=== PATIENT | female | born 1980 | race Caucasian/White ===

== ENCOUNTER → 2017-01-21 | Day surgery (SDC) | payer BC ==
--- NOTE | 2017-01-21 16:05 | RADIOLOGY REPORT (SQ) ---
EXAM DESCRIPTION: U/S BIOPSY THYROID; U/S BIOPSY NEEDLE PLACEMENT COMPLETED DATE/TIME: 01/21/2017 2:39 pm REASON FOR STUDY: L THYROID NODULES; LT THYROID NODULES E04.9 NONTOXIC GOITER, UNSPECIFIED COMPARISON: Thyroid ultrasound 06/27/2012 Thyroid ultrasound [facility] 01/17/2017 TECHNIQUE: Prior imaging was reviewed. Patient has a a solid nodule in the upper half of the left l obe thyroid, and a cyst with mural nodule in the lower pole left lobe thyroid. Each of these lesions was targeted for thyroid aspirate. Limited imaging of the right lobe thyroid demonstrates a small solid nodule in the posterior inferior right lobe thyroid measuring 8 x 6 mm in size, similar compared to study from 2011. There is also a tiny 2 to 3 mm colloid cyst, similar compared to ultrasound 01/17/2017. Left lobe thyroid nodule biopsy was discussed with the patient and written informed consent obtained. A timeout was performed to confirm the procedure and patient's identity. The skin of the neck was prepped and draped in sterile fashion. Left upper pole nodule: 0.75 mL of 1% lidocaine administered for local anesthesia. Under sonographic guidance, fine needle a spiration biopsy was performed of the mass in the upper pole left lobe of the thyroid. 3 aspirates w ere obtained, specimens were received by the case checker who confirmed adequate tissue sampling. Left lower pole nodule: 0.5 mL of 1% lidocaine was administered for local anesthesia. Under sonographic guidance, fine-needl e aspiration was performed of the mass in the lower pole left lobe thyroid. Initial needle pass yiel ded 0.5 mL of fluid. Subsequent passes yielded cellular material, specimens were received by the [facility] [place] otechnologist who confirmed adequate tissue sampling. There were no immediate postprocedure complications. LIMITATIONS: None. FINDINGS: PATHOLOGY: Pending. IMPRESSION: ULTRASOUND-GUIDED BIOPSY PERFORMED OF MASSES IN THE LEFT UPPER AND LEFT LOWERTHYROID. P ATHOLOGY PENDING AT THE TIME OF DICTATION. COMMENT: Patient medication list reviewed: Yes- Quality ID# [id number]:Eligible professional attests to doc umenting in the medical record they obtained, updated, or reviewed the patient's current medications. TECHNICAL DOCUMENTATION: JOB ID: [id number] [employer]- All Rights Reserved
--- NOTE | 2017-01-21 16:05 | RADIOLOGY REPORT (SQ) ---
EXAM DESCRIPTION: U/S BIOPSY THYROID; U/S BIOPSY NEEDLE PLACEMENT COMPLETED DATE/TIME: 01/21/2017 2:39 pm REASON FOR STUDY: L THYROID NODULES; LT THYROID NODULES E04.9 NONTOXIC GOITER, UNSPECIFIED COMPARISON: Thyroid ultrasound 06/27/2012 Thyroid ultrasound [facility] 01/17/2017 TECHNIQUE: Prior imaging was reviewed. Patient has a a solid nodule in the upper half of the left l obe thyroid, and a cyst with mural nodule in the lower pole left lobe thyroid. Each of these lesions was targeted for thyroid aspirate. Limited imaging of the right lobe thyroid demonstrates a small solid nodule in the posterior inferior right lobe thyroid measuring 8 x 6 mm in size, similar compared to study from 2011. There is also a tiny 2 to 3 mm colloid cyst, similar compared to ultrasound 01/17/2017. Left lobe thyroid nodule biopsy was discussed with the patient and written informed consent obtained. A timeout was performed to confirm the procedure and patient's identity. The skin of the neck was prepped and draped in sterile fashion. Left upper pole nodule: 0.75 mL of 1% lidocaine administered for local anesthesia. Under sonographic guidance, fine needle a spiration biopsy was performed of the mass in the upper pole left lobe of the thyroid. 3 aspirates w ere obtained, specimens were received by the web machine tender who confirmed adequate tissue sampling. Left lower pole nodule: 0.5 mL of 1% lidocaine was administered for local anesthesia. Under sonographic guidance, fine-needl e aspiration was performed of the mass in the lower pole left lobe thyroid. Initial needle pass yiel ded 0.5 mL of fluid. Subsequent passes yielded cellular material, specimens were received by the [facility] otechnologist who confirmed adequate tissue sampling. There were no immediate postprocedure complications. LIMITATIONS: None. FINDINGS: PATHOLOGY: Pending. IMPRESSION: ULTRASOUND-GUIDED BIOPSY PERFORMED OF MASSES IN THE LEFT UPPER AND LEFT LOWERTHYROID. P ATHOLOGY PENDING AT THE TIME OF DICTATION. COMMENT: Patient medication list reviewed: Yes- Quality ID# [id number]:Eligible professional attests to doc umenting in the medical record they obtained, updated, or reviewed the patient's current medications. TECHNICAL DOCUMENTATION: JOB ID: [id number] [employer]- All Rights Reserved
== END ==
LOC: RAD 12:48
PROVIDERS: ATTEND Physician Assistant
PROC: 0GBG3ZX Excision of Left Thyroid Gland Lobe, Percutaneous Approach, Diagnostic (ICD-10-PCS; principal; 2017-01-21)
DX: E04.9 Nontoxic goiter, unspecified (principal)
CPT/HCPCS: 60100; 76942; 88173

== ENCOUNTER 2017-09-30 07:11 | Observation (INO) | payer BC ==
[2017-09-29 10:26] LABS: ABSOLUTE EOSINOPHILS # (AUTO) 0.1 10^3/uL (0.0-0.6); ABSOLUTE LYMPHOCYTES (AUTO) 2.5 10^3/uL (0.5-4.7); ABSOLUTE MONOCYTES (AUTO) 0.4 10^3/uL (0.1-1.4); BASOPHILS % (AUTO) 0.7 % (0-2); EOSINOPHILS % (AUTO) 1.1 % (0-6); HEMATOCRIT 35.7 % (36.0-47.0); HEMOGLOBIN 12.6 g/dL (12.0-15.5); LYMPHOCYTES % (AUTO) 35.5 % (13-45); MEAN CORPUSCULAR HEMOGLOBIN 30.2 pg (27.0-33.4); MEAN CORPUSCULAR HGB CONC 35.2 g/dL (32.0-36.0); MEAN CORPUSCULAR VOLUME 86 fl (80-97); MONOCYTES % (AUTO) 5.8 % (3-13); PLATELET COUNT 219 10^3/uL (150-450); RED BLOOD COUNT 4.15 10^6/uL (3.72-5.28); SEGMENTED NEUTROPHILS % (AUTO) 56.9 % (42-78); TOTAL CELLS COUNTED % (AUTO) 100 %; WHITE BLOOD COUNT 7.1 10^3/uL (4.0-10.5)
[2017-09-29 10:59] LABS: ANION GAP 11 (5-19); BLOOD UREA NITROGEN 12 mg/dL (7-20); CALCIUM 9.8 mg/dL (8.4-10.2); CARBON DIOXIDE 28 mmol/L (22-30); CHLORIDE 103 mmol/L (98-107); GLUCOSE 74 mg/dL (75-110); POTASSIUM 3.9 mmol/L (3.6-5.0); SODIUM 141.9 mmol/L (137-145)
--- NOTE | 2017-09-29 12:47 | EKG REPORT ---
SEVERITY:- NORMAL ECG - SINUS RHYTHM : Confirmed by: Jarad Dean MD 29-Sep-2017 12:46:19
[2017-09-30 08:23] LABS: ALBUMIN 4.7 g/dL (3.5-5.0); CALCIUM 9.8 mg/dL (8.4-10.2); MAGNESIUM 2.1 mg/dL (1.6-2.3); PHOSPHORUS 3.1 mg/dL (2.5-4.5)
[2017-09-30] MEDS ORDERED: LIDOCAINE 2%/EPINEPHRINE INJ 1.7 ML CARTRIDGE ONE (09:23)
[2017-09-30] MEDS ORDERED: DEXAMETHASONE SOD PHOSPHATE INJ 4 MG/1 ML VIAL ONE (09:47)
[2017-09-30] MEDS ORDERED: GLYCOPYRROLATE INJ 0.4 MG/2 ML VIAL ONE (09:47)
[2017-09-30] MEDS ORDERED: ONDANSETRON HCL INJ/PF 4 MG/2 ML SDV ONE (09:47)
[2017-09-30] MEDS ORDERED: SUCCINYLCHOLINE CHLORIDE INJ 200 MG/10 ML VIAL ONE (09:47)
[2017-09-30] MEDS ORDERED: MIDAZOLAM 2 MG/2 ML INJ ONE (10:31)
[2017-09-30] MEDS ORDERED: HYDROMORPHONE HCL INJ/PF 2 MG/ML AMPULE ONE (10:31)
[2017-09-30] MEDS ORDERED: EPHEDRINE SULFATE INJ 50 MG/1 ML AMPULE ONE (10:31)
[2017-09-30] MEDS ORDERED: FENTANYL CITRATE INJ/PF 100 MCG/2 ML AMPUL ONE ×2 (10:31→15:44)
[2017-09-30] MEDS ORDERED: ACETAMINOPHEN 100 ML IV ONE (10:32)
[2017-09-30] MEDS ORDERED: PROPOFOL INJ 200 MG/20 ML VIAL IV ONE (10:32)
[2017-09-30] MEDS ORDERED: CEFAZOLIN INJ 1 GM VIAL ONE (10:57)
[2017-09-30] MEDS ORDERED: MICROFIBRILLAR COLLAGEN 1 GM PACK ONE (14:11)
[2017-09-30] MEDS ORDERED: OXYCODONE-ACETAMINOPHEN 5-325 MG TABLET PO PRN ×2 (14:21)
[2017-09-30] MEDS ORDERED: MORPHINE SULFATE 10 MG/ML INJ IV PRN ×2 (14:21→16:18)
[2017-09-30] MEDS ORDERED: MEPERIDINE HCL/PF INJ 25 MG/1 ML DISP.SYRIN IV PRN (14:21)
[2017-09-30] MEDS ORDERED: FENTANYL CITRATE INJ/PF 100 MCG/2 ML AMPUL IV PRN ×3 (14:21)
[2017-09-30] MEDS ORDERED: PROMETHAZINE HCL INJ 25 MG/1 ML VIAL IV PRN ×4 (14:21→17:08)
[2017-09-30] MEDS ORDERED: DIPHENHYDRAMINE HCL 50 MG/ML VIAL IV PRN (14:21)
[2017-09-30] MEDS ORDERED: PROMETHAZINE HCL INJ 25 MG/1 ML VIAL ONE (15:43)
[2017-09-30] MEDS ORDERED: ONDANSETRON HCL INJ/PF 4 MG/2 ML SDV IV PRN (17:07)
[2017-09-30] MEDS: RINGERS SOLUTION,LACTATED 1,000 ML IV PRN (17:45)
[2017-09-30] MEDS: HYDROCODONE/ACETAMINOPHEN 5-325 MG TABLET PO PRN ×2 (17:46→22:09)
[2017-09-30 20:50] LABS: ALBUMIN 4.1 g/dL (3.5-5.0); MAGNESIUM 1.8 mg/dL (1.6-2.3); PHOSPHORUS 2.7 mg/dL (2.5-4.5)
[2017-10-01] MEDS: RINGERS SOLUTION,LACTATED 1,000 ML IV PRN (02:34)
[2017-10-01] MEDS: HYDROCODONE/ACETAMINOPHEN 5-325 MG TABLET PO PRN (07:24)
[2017-10-01 12:09] VITALS: BP 123/81
--- NOTE | 2017-10-02 15:38 | OPERATIVE REPORT E ---
Operative Report NAME: CHRISTOPHER DUARTE : 1980 AGE: 37Y DATE OF SURGERY: 09/30/2017 ROOM: 319 PREOPERATIVE DIAGNOSIS: MULTINODULAR GOITER. POSTOPERATIVE DIAGNOSIS: MULTINODULAR GOITER. OPERATIONS: 1. Total thyroidectomy. 2. Intraoperative NIM nerve monitoring. SURGEON: PEDRO PABLO ROLLINS D.O. ANESTHESIA: General endotracheal tube. ANESTHESIA STAFF: Pedro Pablo Jones CRNA COMPLICATIONS: None. DRAINS: None. SPONGE COUNT: Verified. NEEDLE COUNT: Verified. INTRAVENOUS FLUIDS: 2200 mL. URINE OUTPUT: 1000 mL. ESTIMATED BLOOD LOSS: 50 mL. MATERIALS FORWARDED SPECIMEN: Total thyroid gland with double long marking suture at the left superior pole and single short suture at the right superior pole. FINDINGS: 1. Multinodular total thyroid gland, left greater than right, and gland with multilobular borders and a pyramidal lobe. 2. Bilateral recurrent laryngeal nerves were identified and preserved and were with adequate stimulation at 0.5 milliamps at the end of the case. 3. Bilateral parathyroid gland prospects were identified and preserved. 4. There was no lymphadenopathy noted. INDICATIONS: This is a 37-year-old white female who was seen and evaluated in the [facility] office. The patient had been referred by Dr. Abdi, quality assurance monitor body, [place], [place], for a history of a multinodular goiter with enlarged left thyroid nodules compared to the right, and the patient has been with progressively worsening compressive symptoms over the months. Fine needle aspiration biopsies had been performed with pathology being benign, [place] category 2. However, the patient is aware that there is sampling error involved as well due to the left thyroid nodule that is greater than 3 cm in size. After extensive discussion with the patient, recommendation and plan was made to proceed with a total thyroidectomy, which the patient voiced an understanding of and agreed with. The procedures and all of their risks and complications were all discussed in detail with the patient. She voiced an understanding of all that was discussed, was in agreement, and consent was obtained. PROCEDURE: The patient was taken to the main operating room and placed on the operating room table in the supine position. Appropriate monitoring placed. Using mask and IV access, general anesthesia was induced. The patient was transorally intubated with the NIM monitoring endotracheal tube without difficulty. The previously planned incision site was marked and then infiltrated with local anesthetic with epinephrine. The NIM monitoring system was also set up, and it tested appropriately prior to beginning the case. The patient was next prepped and draped in the usual fashion for neck/thyroid surgery. At this point, the skin was sharply incised down to the level of the platysma. Flaps were elevated in a subplatysmal plane without difficulty. The strap muscles were identified and divided in the midline. The left thyroid lobe with enlarged nodules was mobilized without difficulty. The superior and inferior thyroid pole vasculature was identified and addressed with the Harmonic handpiece device. Bipolar electrocautery was also used throughout the case to provide adequate hemostasis. During the process of mobilizing the left thyroid lobe and nodules, parathyroid gland prospects were identified and preserved. The left recurrent laryngeal nerve was also identified and preserved. It stimulated adequately at 0.5 milliamps. Attention was turned to the right thyroid lobe which was mobilized as the left had been. Superior and inferior thyroid pole vasculature was addressed as before. The parathyroid gland prospects and right recurrent laryngeal nerve were all identified and preserved. The right recurrent laryngeal nerve stimulated adequately at 0.5 milliamps. The thyroid gland was next released from the area of Hernandez's ligament and brought onto the anterior tracheal wall, where it was also released. The pyramidal lobe was also mobilized and removed as a part of the thyroid gland specimen. The gland was marked as noted above. The wound beds were thoroughly irrigated with normal saline. Bipolar electrocautery was used to provide adequate hemostasis. One 2 x 2 cm piece of Surgicel was placed per side. The strap muscles were reapproximated in the midline with 5-0 Vicryl suture; 5-0 Vicryl suture was also used to reapproximate the platysmal layer. Next, 5-0 Monocryl suture was used to reapproximate the deeper subcutaneous and dermal layers. A final skin layer of reapproximation was performed with a continuous deep dermal 5-0 Monocryl suture. At this point, the skin was cleaned and dried followed by placement of Mastisol and Steri-Strips. The patient was then returned to the anesthesia staff and was allowed to emerge from general anesthesia. The patient was extubated in the main operating room and was then transported to the postanesthesia recovery unit in stable condition. There were no complications. DICTATING PHYSICIAN: PEDRO PABLO ROLLINS D.O. [id number] PHY#: [id number] ID: [id number] JOB#: [id number] ACCT: [id number] cc:PEDRO PABLO ROLLINS D.O. > KRISTIN
== END 2017-10-01 12:10 | disposition home or self-care (01) ==
LOC: OROUT 07:11 → 3W 16:08
PROVIDERS: ADMIT Otolaryngology; ATTEND Otolaryngology
PROC: 0GBJ0ZZ Excision of Thyroid Gland Isthmus, Open Approach (ICD-10-PCS; 2017-09-30)
PROC: 0GTK0ZZ Resection of Thyroid Gland, Open Approach (ICD-10-PCS; principal; 2017-09-30 09:45)
DX: E04.2 Nontoxic multinodular goiter (principal); G43.909 Migraine, unspecified, not intractable, without status migrainosus; Z80.9 Family history of malignant neoplasm, unspecified; Z83.49 Family history of other endocrine, nutritional and metabolic diseases; Z90.49 Acquired absence of other specified parts of digestive tract; Z87.891 Personal history of nicotine dependence; Z79.899 Other long term (current) drug therapy
CPT/HCPCS: 93005; 36415 ×2; 82040; 82310; 83735; 84100; 84703; 85025; 80048; 83970; 88307 ×2; 93010; 60240; G0378 ×2; G0379; J2250; J3490 ×2; J0690; J1100; J3010; J1170; J2550; J0330; J2405; J7120 ×2; J2704; J0131; 320

== ENCOUNTER 2019-06-26 14:05 | Emergency (ER) | payer BC, OTHER ==
[2019-06-26] MEDS ORDERED: NORMAL SALINE 1000 ML 1,000 ML IV ONE (14:08)
--- NOTE | 2019-06-26 14:13 | ER Document Report ---
ED Medical Screen (RME) - General Chief Complaint: Dizziness Stated Complaint: DIZZINESS Time Seen by Provider: 06/26/19 14:07 Primary Care Provider: SIDDHARTH FLOR CRNP [Primary Care Provider] - Follow up as needed Mode of Arrival: Ambulatory Information source: Patient Notes: 38-year-old female presents to the emergency department with feeling shortness of breath confusion lightheaded. Reports she is been taking doxy 100 mg p.o. twice daily. Has hoarse voice. I have greeted and performed a rapid initial assessment of this patient. A comprehensive ED assessment and evaluation of the patient, analysis of test results and completion of the medical decision making process will be conducted by additional ED providers. Dictation of this chart was performed using voice recognition software; therefore, there may be some unintended grammatical errors. TRAVEL OUTSIDE OF THE U.S. IN LAST 30 DAYS: No - Related Data Allergies/Adverse Reactions: No Known Allergies Allergy (Verified 11/03/11 15:51) Past Medical History - Past Medical History Cardiac Medical History: Denies: Hx Congestive Heart Failure, Hx Coronary Artery Disease, Hx Heart Attack, Hx Hypertension Pulmonary Medical History: Denies: Hx Asthma, Hx Bronchitis, Hx COPD, Hx Pneumonia, Hx Tuberculosis Neurological Medical History: Denies: Hx Cerebrovascular Accident, Hx Seizures, Hx Parkinson's Disease Renal/ Medical History: Denies: Hx End Stage Renal Disease, Hx Kidney Stones GI Medical History: Denies: Hx Cirrhosis, Hx Gastroesophageal Reflux Disease, Hx Ulcer Musculoskeltal Medical History: Denies Hx Arthritis, Denies Hx Multiple Sclerosis Psychiatric Medical History: Denies: Hx Bipolar Disorder, Hx Depression, Hx Schizophrenia Past Surgical History: Reports: Hx Appendectomy, Hx Breast Surgery - Immunizations Immunizations up to date: Yes Hx Diphtheria, Pertussis, Tetanus Vaccination: Yes Doctor's Discharge - Discharge Referrals: SIDDHARTH FLOR CRNP [Primary Care Provider] - Follow up as needed
[2019-06-26 14:48] LABS: ABSOLUTE LYMPHOCYTES (AUTO) 1.7 10^3/uL (0.5-4.7); ABSOLUTE MONOCYTES (AUTO) 0.4 10^3/uL (0.1-1.4); ABSOLUTE NEUT (AUTO) 8.6 10^3/uL (1.7-8.2); BASOPHILS % (AUTO) 0.5 % (0-2); EOSINOPHILS % (AUTO) 0.3 % (0-6); HEMATOCRIT 38.7 % (36.0-47.0); HEMOGLOBIN 13.2 g/dL (12.0-15.5); LYMPHOCYTES % (AUTO) 15.5 % (13-45); MEAN CORPUSCULAR HEMOGLOBIN 30.1 pg (27.0-33.4); MEAN CORPUSCULAR HGB CONC 34.1 g/dL (32.0-36.0); MEAN CORPUSCULAR VOLUME 88 fl (80-97); MONOCYTES % (AUTO) 3.7 % (3-13); PLATELET COUNT 260 10^3/uL (150-450); RED BLOOD COUNT 4.39 10^6/uL (3.72-5.28); RED CELL DISTRIBUTION WIDTH 13.2 % (11.5-14.0); TOTAL CELLS COUNTED % (AUTO) 100 %; WHITE BLOOD COUNT 10.7 10^3/uL (4.0-10.5)
[2019-06-26 15:06] LABS: ALBUMIN 4.6 g/dL (3.5-5.0); ALKALINE PHOSPHATASE 58 U/L (38-126); ANION GAP 14 (5-19); ASPARTATE AMINO TRANSFERASE 24 U/L (14-36); BILIRUBIN,DIRECT 0.2 mg/dL (0.0-0.4); BILIRUBIN,TOTAL 0.3 mg/dL (0.2-1.3); BLOOD UREA NITROGEN 15 mg/dL (7-20); CALCIUM 9.2 mg/dL (8.4-10.2); CARBON DIOXIDE 24 mmol/L (22-30); CHLORIDE 105 mmol/L (98-107); GLUCOSE 115 mg/dL (75-110); TOTAL PROTEIN 7.4 g/dL (6.3-8.2)
[2019-06-26 15:08] LABS: A TYPE INFLUENZA AG NEGATIVE (NEGATIVE); B INFLUENZA AG NEGATIVE (NEGATIVE)
--- NOTE | 2019-06-26 15:26 | RADIOLOGY REPORT (SQ) ---
EXAM DESCRIPTION: CHEST 2 VIEWS COMPLETED DATE/TIME: 06/26/2019 3:08 pm REASON FOR STUDY: sob COMPARISON: PA and lateral views of the chest from 07/26/2012. EXAM PARAMETERS: NUMBER OF VIEWS: two views TECHNIQUE: Digital Frontal and Lateral radiographic views of the chest acquired. RADIATION DOSE: NA LIMITATIONS: none FINDINGS: LUNGS AND PLEURA: Acute bilateral perihilar opacities in a peribronchial distribution and associated with peribronchial cuffing. There is no superimposed consolidation, pleural effusion or p neumothorax. MEDIASTINUM AND HILAR STRUCTURES: No mediastinal or hilar contour abnormality. HEART AND VASCULAR STRUCTURES: The cardiac silhouette and pulmonary vasculature are within normal roger its. BONES: No acute findings. HARDWARE: None. OTHER: No other finding. IMPRESSION: Acute bilateral perihilar opacities in a peribronchial distribution and associated with peribronchial cuffing. There is no superimposed consolidation. Clinical correlation to exclude an i nfectious or inflammatory bronchiolitis is recommended. TECHNICAL DOCUMENTATION: JOB ID: [id number] [employer]- All Rights Reserved Reading location - IP/workstation name: [email or web address]
--- NOTE | 2019-06-26 15:31 | EKG REPORT ---
SEVERITY:- BORDERLINE ECG - SINUS RHYTHM BORDERLINE T ABNORMALITIES, DIFFUSE LEADS : Confirmed by: Jarad Dean MD 26-Jun-2019 15:30:54
--- NOTE | 2019-06-26 15:54 | RADIOLOGY REPORT (SQ) ---
EXAM DESCRIPTION: CTA CHEST COMPLETED DATE/TIME: 06/26/2019 3:32 pm REASON FOR STUDY: sob/dizzy/vapes COMPARISON: PA and lateral views of the chest from 06/26/2019. TECHNIQUE: CT scan of the chest performed using helical scanning technique with dynamic intravenous contrast injection. Images reviewed with lung, soft tissue and bone windows. Reconstructed coronal and sagittal MPR images reviewed. Additional 3 dimensional post-processing performed to develop Maximal Intensity Projection images ([place] P). All images stored on PACS. All CT scanners at this facility use dose modulation, iterative reconstruction, and/or weight based d osing when appropriate to reduce radiation dose to as low as reasonably achievable (ALARA). [facility]: Dose Right [facility]: CareDose [facility]: Dose Right [facility]: Teradose 4D [facility]: CampuScene CONTRAST TYPE AND DOSE: contrast/concentration: Isovue 350.00 mg/ml; Total Contrast Delivered: 70.0 ml; Total Saline Delivered: 70.0 ml Contrast bolus optimized for the pulmonary arteries. Not diagnostic for the aorta. RENAL FUNCTION: GFR > 60. RADIATION DOSE: CT Rad equipment meets quality standard of care and radiation dose reduction techniq ues were employed. CTDIvol: 14.3 - 14.9 mGy. DLP: 552 mGy-cm. . LIMITATIONS: None. FINDINGS: LUNGS AND PLEURA: The trachea main bronchi are patent. There is no bronchiectasis or mucu s plugging. There are strands of atelectasis in the lingula, right middle lobe and bilateral lower l obes. There is no consolidation, ground-glass opacification, pleural effusion or pneumothorax AORTA AND GREAT VESSELS: Evaluation is limited as the contrast bolus was optimized for evaluation of the pulmonary arteries. There is no thoracic aortic dissection. HEART: No cardiomegaly or pericardial effusion. PULMONARY ARTERIES: No central or segmental pulmonary embolus. Evaluation of the subsegmental branch es is limited due to respiratory motion. HILAR AND MEDIASTINAL STRUCTURES: No mediastinal or hilar adenopathy. HARDWARE: None in the chest. UPPER ABDOMEN: No acute findings. THYROID AND OTHER SOFT TISSUES: Bilateral prepectoral breast implants. BONES: No acute findings. 3D MIPS: Confirm above findings. OTHER: No other finding. IMPRESSION: 1. No central or segmental pulmonary embolus. Evaluation of the subsegmental branches is limited due to respiratory motion. 2. No acute cardiopulmonary process. The bilateral perihilar opacities described on the correlative radiograph represent artifact from the breast implants. COMMENT: Quality ID # [id number]: Final reports with documentation of one or more dose reduction techniques (e.g., Automated exposure control, adjustment of the mA and/or kV according to patient size, use of iterative reconstruction technique) TECHNICAL DOCUMENTATION: JOB ID: [id number] [employer]- All Rights Reserved Reading location - IP/workstation name: [email or web address]
[2019-06-26 16:39] VITALS: BP 146/98
--- NOTE | 2019-06-26 16:42 | ER Document Report ---
ED Dizziness/Weakness - General Chief Complaint: Dizziness Stated Complaint: DIZZINESS Time Seen by Provider: 06/26/19 14:07 Primary Care Provider: SIDDHARTH FLOR CRNP [COMMUNITY BASED STAFF] - Follow up as needed Mode of Arrival: Ambulatory Information source: Patient TRAVEL OUTSIDE OF THE U.S. IN LAST 30 DAYS: No - HPI Notes: Patient presents with weakness, dizziness and shortness of breath. Patient states she has had upper respiratory-like symptoms for approximately 6 days. She states she has been taking steroids, doxycycline, DayQuil, and Benadryl at home. She states when she woke up this morning she felt that she was doing better than on the drive to work she became very dizzy lightheaded and felt short of breath. She states she has been coughing sometimes to the point where she has a hard time catching her breath. She states that her pertussis vaccination is up-to-date. She has had fevers and chills at home. She has had body aches and weakness. Her body aches are moderate in intensity. They are s ystemic. They radiate throughout her body. They are worse with movement and better with rest. She has had some hoarseness of her voice as well. She is also had trouble sleeping. - Related Data Allergies/Adverse Reactions: No Known Allergies Allergy (Verified 11/03/11 15:51) Past Medical History - General Information source: Patient - Social History Smoking Status: Current Some Day Smoker - Patient vapes Frequency of alcohol use: None Drug Abuse: None Family History: Reviewed & Not Pertinent Patient has suicidal ideation: No Patient has homicidal ideation: No - Past Medical History Cardiac Medical History: Denies: Hx Congestive Heart Failure, Hx Coronary Artery Disease, Hx Heart Attack, Hx Hypertension Pulmonary Medical History: Denies: Hx Asthma, Hx Bronchitis, Hx COPD, Hx Pneumonia, Hx Tuberculosis Neurological Medical History: Denies: Hx Cerebrovascular Accident, Hx Seizures, Hx Parkinson's Disease Renal/ Medical History: Denies: Hx End Stage Renal Disease, Hx Kidney Stones GI Medical History: Denies: Hx Cirrhosis, Hx Gastroesophageal Reflux Disease, Hx Ulcer Musculoskeletal Medical History: Denies Hx Arthritis, Denies Hx Multiple Sclerosis Psychiatric Medical History: Denies: Hx Bipolar Disorder, Hx Depression, Hx Schizophrenia Past Surgical History: Reports: Hx Appendectomy, Hx Breast Surgery - Immunizations Immunizations up to date: Yes Hx Diphtheria, Pertussis, Tetanus Vaccination: Yes Review of Systems - Review of Systems Constitutional: Chills, Fever, Malaise, Weakness Cardiovascular: Dizziness, Lightheaded Respiratory: Cough, Short of breath -: Yes All other systems reviewed and negative Physical Exam - Vital signs Vitals: Resp Pulse Ox 15 98 06/26/19 15:02 06/26/19 15:02 Interpretation: Normal - General General appearance: Appears well, Alert - HEENT Head: Normocephalic, Atraumatic Eyes: Normal Pupils: PERRL - Respiratory Respiratory status: No respiratory distress Chest status: Nontender Breath sounds: Normal Chest palpation: Normal - Cardiovascular Rhythm: Regular Heart sounds: Normal auscultation Murmur: No - Abdominal Inspection: Normal Distension: No distension Bowel sounds: Normal Tenderness: Nontender Organomegaly: No organomegaly - Back Back: Normal, Nontender - Extremities General upper extremity: Normal inspection, Nontender, Normal color, Normal ROM, Normal temperature General lower extremity: Normal inspection, Nontender, Normal color, Normal ROM, Normal temperature, Normal weight bearing. No: Amrit's sign - Neurological Neuro grossly intact: Yes Cognition: Normal Orientation: AAOx4 [place] Coma Scale Eye Opening: Spontaneous Sal Coma Scale Verbal: Oriented Sal Coma Scale Motor: Obeys Commands [place] Coma Scale Total: 15 Speech: Normal Motor strength normal: LUE, RUE, LLE, RLE Sensory: Normal - Psychological Associated symptoms: Normal affect, Normal mood - Skin Skin Temperature: Warm Skin Moisture: Dry Skin Color: Normal Course - Re-evaluation Re-evalutation: 06/26/19 16:40 Patient presents with upper respiratory symptoms for 6 days with dizziness and shortness of breath. I believe this patient's symptoms may be a combination of the URI plus the medicine she is taking. CT of the chest shows no evidence of pulmonary embolism or infectious process. Laboratories are unremarkable as well. Patient's vital signs are stable. She has an unremarkable exam. I will have the patient stop all the medication she is taking and start Tessalon Perles and Ceftin ear. - Vital Signs Vital signs: Temp Pulse Resp BP Pulse Ox 17 153/100 H 97 06/26/19 15:03 06/26/19 15:03 06/26/19 15:03 - Laboratory Result Diagrams: 06/26/19 14:18 06/26/19 14:18 Laboratory results interpreted by me: 06/26/19 06/26/19 06/26/19 14:18 14:18 14:18 WBC 10.7 H Absolute Neuts (auto) 8.6 H Seg Neutrophils % 80.0 H Glucose 115 H POC Glucose 116 H - Diagnostic Test Radiology reviewed: Image reviewed, Reports reviewed - EKG Interpretation by Me EKG shows normal: Sinus rhythm Rate: Normal - 64 Rhythm: NSR [place]/QRS: No: Right axis deviation, Left axis deviation Discharge - Discharge Clinical Impression: Dizziness URI (upper respiratory infection) Qualifiers: URI type: unspecified URI Qualified Code(s): J06.9 - Acute upper respiratory infection, unspecified Condition: Stable Disposition: HOME, SELF-CARE Instructions: Upper Respiratory Illness ([facility]), Dizziness ([facility]) Prescriptions: Benzonatate [Tessalon Perle 100 mg Capsule] 200 mg PO Q8HP PRN 4 Days #20 cap PRN Reason: Cefdinir 300 mg PO BID 7 Days #14 capsule Referrals: SIDDHARTH FLOR CRNP [COMMUNITY BASED STAFF] - Follow up as needed
== END 2019-06-26 17:00 | disposition home or self-care (01) ==
LOC: ER 14:05
DX: J06.9 Acute upper respiratory infection, unspecified (principal); R42 Dizziness and giddiness; R06.02 Shortness of breath; R41.0 Disorientation, unspecified; R53.1 Weakness; F17.290 Nicotine dependence, other tobacco product, uncomplicated
CPT/HCPCS: 93005; 99284; 96360; 36415; 82962; 84703; 85025; 80053; 84484; 87804; 71046; 71275; 93010; J7030

== ENCOUNTER 2019-07-02 17:18 | Emergency (ER) | payer OTHER ==
--- NOTE | 2019-07-02 18:34 | RADIOLOGY REPORT (SQ) ---
EXAM DESCRIPTION: CT HEAD WITHOUT COMPLETED DATE/TIME: 07/02/2019 6:12 pm REASON FOR STUDY: left sided pain COMPARISON: 10/11/2012 TECHNIQUE: Axial images acquired through the brain without intravenous contrast. Images reviewed wi th bone, brain and subdural windows. Additional sagittal and coronal reconstructions were generated. Images stored on PACS. All CT scanners at this facility use dose modulation, iterative reconstruction, and/or weight based d osing when appropriate to reduce radiation dose to as low as reasonably achievable (ALARA). [facility]: Dose Right [facility]: CareDose [facility]: Dose Right [facility]: Teradose 4D [facility]: [employer] SAVE RADIATION DOSE: mGy. LIMITATIONS: None. FINDINGS: VENTRICLES: Normal size and contour. CEREBRUM: No masses. No hemorrhage. No midline shift. No evidence for acute infarction. Normal gra y/white matter differentiation. No areas of low density in the white matter. CEREBELLUM: No masses. No hemorrhage. No alteration of density. No evidence for acute infarction. EXTRAAXIAL SPACES: No fluid collections. No masses. ORBITS AND GLOBE: No intra- or extraconal masses. Normal contour of globe without masses. CALVARIUM: No fracture. PARANASAL SINUSES: No fluid or mucosal thickening. SOFT TISSUES: No mass or hematoma. OTHER: No other significant finding. IMPRESSION: NORMAL BRAIN CT WITHOUT CONTRAST. EVIDENCE OF ACUTE STROKE: NO. COMMENT: Quality ID # [id number]: Final reports with documentation of one or more dose reduction techniques (e.g., Automated exposure control, adjustment of the mA and/or kV according to patient size, use of iterative reconstruction technique) TECHNICAL DOCUMENTATION: JOB ID: [id number] [employer]- All Rights Reserved Reading location - IP/workstation name: [email or web address]
--- NOTE | 2019-07-02 18:37 | RADIOLOGY REPORT (SQ) ---
EXAM DESCRIPTION: CT CERVICAL SPINE WITHOUT COMPLETED DATE/TIME: 07/02/2019 6:12 pm REASON FOR STUDY: left sided pain COMPARISON: None. TECHNIQUE: Axial images acquired through the cervical spine without intravenous contrast. Images re viewed with lung, soft tissue and bone windows. Reconstructed coronal and sagittal MPR images review ed. Images stored on PACS. All CT scanners at this facility use dose modulation, iterative reconstruction, and/or weight based d osing when appropriate to reduce radiation dose to as low as reasonably achievable (ALARA). [facility]: Dose Right [facility]: CareDose [facility]: Dose Right [facility]: Teradose 4D [facility]: [employer] RADIATION DOSE: CT Rad equipment meets quality standard of care and radiation dose reduction techniq ues were employed. CTDIvol: 18.5 - 53.2 mGy. DLP: 1420 mGy-cm. mGy. LIMITATIONS: None. FINDINGS: ALIGNMENT: Anatomic. MINERALIZATION: Normal. VERTEBRAL BODIES: No fractures or dislocation. DISCS: No significant disc disease. FACETS, LATERAL MASSES, POSTERIOR ELEMENTS: No fractures. No dislocation. No acute findings. HARDWARE: None in the spine. VISUALIZED RIBS: No fractures. LUNG APICES AND SOFT TISSUES: No significant or acute findings. OTHER: No other significant finding. IMPRESSION: NO ACUTE OR SIGNIFICANT FINDINGS IN THE CERVICAL SPINE. TECHNICAL DOCUMENTATION: JOB ID: [id number] Quality ID # [id number]: Final reports with documentation of one or more dose reduction techniques (e.g., Au tomated exposure control, adjustment of the mA and/or kV according to patient size, use of iterative reconstruction technique) 2010 [employer]- All Rights Reserved Reading location - IP/workstation name: [email or web address]
--- NOTE | 2019-07-02 18:42 | ER Document Report ---
ED General - General Chief Complaint: Neck Pain >24hrs old Stated Complaint: NECK PAIN Time Seen by Provider: 07/02/19 17:39 Primary Care Provider: CLYDE ESPOSITO MD [Primary Care Provider] - Follow up as needed Mode of Arrival: Ambulatory Information source: Patient TRAVEL OUTSIDE OF THE [place] IN LAST 30 DAYS: No - HPI Notes: Patient presents with approximately 12 days of upper respiratory symptoms. This includes mainly a dry cough. She also has body aches and headache. She states several days ago she began to have severe left-sided neck pain that is constant and radiates into her head. She has had no relief with multiple different [id number] medications at home. She does not have a history of headaches. No changes of vision. No trouble swallowing or speaking. The pain in her neck is constant and severe. It is worse with movement and better with rest. It radiates up into her head. - Related Data Allergies/Adverse Reactions: No Known Allergies Allergy (Verified 11/03/11 15:51) Home Medications: Synthroid 175mcg Once Daily Past Medical History - General Information source: Patient - Social History Smoking Status: Current Some Day Smoker - Vapes Chew tobacco use (# tins/day): No Frequency of alcohol use: Rare Drug Abuse: None Family History: Reviewed & Not Pertinent Patient has suicidal ideation: No Patient has homicidal ideation: No - Past Medical History Cardiac Medical History: Denies: Hx Congestive Heart Failure, Hx Coronary Artery Disease, Hx Heart Attack, Hx Hypertension Pulmonary Medical History: Denies: Hx Asthma, Hx Bronchitis, Hx COPD, Hx Pneumonia, Hx Tuberculosis Neurological Medical History: Denies: Hx Cerebrovascular Accident, Hx Seizures, Hx Parkinson's Disease Renal/ Medical History: Denies: Hx End Stage Renal Disease, Hx Kidney Stones GI Medical History: Denies: Hx Cirrhosis, Hx Gastroesophageal Reflux Disease, Hx Ulcer Musculoskeletal Medical History: Denies Hx Arthritis, Denies Hx Multiple Sclerosis Psychiatric Medical History: Denies: Hx Bipolar Disorder, Hx Depression, Hx Schizophrenia Past Surgical History: Reports: Hx Appendectomy, Hx Breast Surgery, Hx Thyroid Surgery - removal - Immunizations Immunizations up to date: Yes Hx Diphtheria, Pertussis, Tetanus Vaccination: Yes Review of Systems - Review of Systems Constitutional: Chills, Fever, Malaise, Weakness Cardiovascular: Chest pain, Dizziness, Lightheaded Respiratory: Cough, Short of breath -: Yes All other systems reviewed and negative Physical Exam - Vital signs Vitals: Temp Pulse Resp BP Pulse Ox 98.9 F 74 16 163/88 H 99 07/02/19 17:30 07/02/19 17:30 07/02/19 17:30 07/02/19 17:30 07/02/19 17:30 Interpretation: Hypertensive - General General appearance: Appears well, Alert - HEENT Head: Normocephalic, Atraumatic Eyes: Normal Pupils: PERRL Neck: Other - Cervical compression test is positive with head tilted to either side but she states the pain is worse when compression is applied while head is tilted to the right. No: Anterior cervical chain, Posterior cervical chain, Lymphadenopathy, Meningismus, Neck mass - Respiratory Respiratory status: No respiratory distress Chest status: Nontender Breath sounds: Normal Chest palpation: Normal - Cardiovascular Rhythm: Regular Heart sounds: Normal auscultation Murmur: No - Abdominal Inspection: Normal Distension: No distension Bowel sounds: Normal Tenderness: Nontender Organomegaly: No organomegaly - Back Back: Normal, Nontender - Extremities General upper extremity: Normal inspection, Nontender, Normal color, Normal ROM, Normal temperature General lower extremity: Normal inspection, Nontender, Normal color, Normal ROM, Normal temperature, Normal weight bearing. No: Amrit's sign - Neurological Neuro grossly intact: Yes Cognition: Normal Orientation: AAOx4 Sal Coma Scale Eye Opening: Spontaneous Dagmar Coma Scale Verbal: Oriented Dagmar Coma Scale Motor: Obeys Commands Dagmar Coma Scale Total: 15 Speech: Normal Motor strength normal: LUE, RUE, LLE, RLE Sensory: Normal - Psychological Associated symptoms: Normal affect, Normal mood - Skin Skin Temperature: Warm Skin Moisture: Dry Skin Color: Normal Course - Vital Signs Vital signs: Temp Pulse Resp BP Pulse Ox 98.9 F 73 16 161/85 H 99 07/02/19 17:30 07/02/19 17:32 07/02/19 17:30 07/02/19 17:32 07/02/19 17:30 - Diagnostic Test Radiology reviewed: Image reviewed, Reports reviewed Discharge - Discharge Clinical Impression: Neck pain on left side Headache Qualifiers: Headache type: unspecified Headache chronicity pattern: acute headache Intractability: intractable Qualified Code(s): R51 - Headache Condition: Stable Disposition: HOME, SELF-CARE Instructions: Headache ([facility]) Prescriptions: Hydrocodone/Acetaminophen [Elim 5-325 mg Tablet] 1 tab PO Q6 PRN 3 Days #12 tablet PRN Reason: Referrals: CLYDE ESPOSITO MD [Primary Care Provider] - Follow up as needed
[2019-07-02 19:50] VITALS: BP 149/85
== END 2019-07-02 19:07 | disposition home or self-care (01) ==
LOC: ER 17:18
DX: M54.2 Cervicalgia (principal); R51 Headache; R05 Cough; R50.9 Fever, unspecified; R53.81 Other malaise; R53.1 Weakness; R07.9 Chest pain, unspecified; R42 Dizziness and giddiness; R06.02 Shortness of breath; F17.290 Nicotine dependence, other tobacco product, uncomplicated; E89.0 Postprocedural hypothyroidism; Z79.899 Other long term (current) drug therapy
CPT/HCPCS: 70450; 72125; 99283

== ENCOUNTER → 2020-01-31 | Outpatient (CLI) | payer OTHER ==
[2020-01-31 15:46] LABS: ALBUMIN 4.4 g/dL (3.5-5.0); ALKALINE PHOSPHATASE 52 U/L (38-126); ANION GAP 8 (5-19); ASPARTATE AMINO TRANSFERASE 24 U/L (14-36); BILIRUBIN,TOTAL 0.4 mg/dL (0.2-1.3); BLOOD UREA NITROGEN 13 mg/dL (7-20); CALCIUM 9.3 mg/dL (8.4-10.2); CARBON DIOXIDE 28 mmol/L (22-30); CHLORIDE 101 mmol/L (98-107); CHOLESTEROL 154.46 mg/dL (0-200); GLUCOSE 78 mg/dL (75-110); POTASSIUM 4.2 mmol/L (3.6-5.0); TRIGLYCERIDES 62 mg/dL (<150)
[2020-01-31 16:00] LABS: DIRECT LDL 100 mg/dL (<100)
== END ==
LOC: OD 14:26
PROVIDERS: ATTEND Family Medicine
DX: Z13.220 Encounter for screening for lipoid disorders (principal); Z13.1 Encounter for screening for diabetes mellitus; Z85.850 Personal history of malignant neoplasm of thyroid
CPT/HCPCS: 36415; 80053; 80061; 84443